=== PATIENT | male | born 1965 | race Caucasian/White ===

== ENCOUNTER 2017-06-22 14:36 | Inpatient (IN) | payer OTHER ==
[~2017-06-22] VITALS: Ht 185.4 cm; Wt 102.3 kg
[2017-06-22 14:40] VITALS: Ht 185.4 cm; Wt 102.3 kg
[2017-06-22 15:22] LABS: BASOPHIL % 0.3 % (0-2); PLATELET COUNT 181 x10^3mcL (130-400)
[2017-06-22 15:26] LABS: CALCIUM 8.7 mg/dL (8.5-10.1); CARBON DIOXIDE 25.7 mmol/L (21-32); CHLORIDE SERUM 109 mmol/L (98-107); CREATININE SERUM 1.1 mg/dL (0.7-1.3); GFR1 > 60 mL/min; GLUCOSE SERUM 105 mg/dL (74-106); SODIUM SERUM 143 mmol/L (136-145)
[2017-06-22 15:30] LABS: ALBUMIN 3.8 g/dL (3.4-5.0); ALKALINE PHOSPHATASE 52 U/L (46-116); ALT/SGPT 27 U/L (16-63); AST/SGOT 20 U/L (15-37); BILIRUBIN TOTAL 0.24 mg/dL (0.20-1.00); CHOLESTEROL 153 mg/dL (<200); HDL CHOLESTEROL 41 mg/dL (40-60); PHOSPHOROUS 3.8 mg/dL (2.5-4.9); TOTAL PROTEIN, SERUM 6.9 g/dL (6.4-8.2); URIC ACID 5.3 mg/dL (3.5-7.2)
[2017-06-22 16:55] LABS: MAGNESIUM 2.1 mg/dL (1.8-2.4)
[2017-06-22 17:08] LABS: T3 TOTAL 1.04 ng/mL
[2017-06-22 17:15] VITALS: BP 124/79
[2017-06-22 17:21] LABS: FREE T4 0.87 ng/dL (0.76-1.46); FREE THYROXINE INDEX 2.3 ug/dL (1.4-4.5); T4(THYROXINE) 6.9 ug/dL (4.7-13.3)
[2017-06-22 21:03] VITALS: BP 99/69
[2017-06-23 05:28] VITALS: BP 125/83
[2017-06-23 06:15] LABS: BASOPHIL % 0.6 % (0-2); PLATELET COUNT 159 x10^3mcL (130-400); RED CELL DISTRIBUTION WIDTH 12.9 % (11.5-14.5)
[2017-06-23 06:26] LABS: CALCIUM 8.8 mg/dL (8.5-10.1); CHLORIDE SERUM 109 mmol/L (98-107); CREATININE SERUM 1.1 mg/dL (0.7-1.3); GFR1 > 60 mL/min; GLUCOSE SERUM 103 mg/dL (74-106); MAGNESIUM 2.1 mg/dL (1.8-2.4); PHOSPHOROUS 3.3 mg/dL (2.5-4.9); POTASSIUM SERUM 4.1 mmol/L (3.5-5.1); SODIUM SERUM 143 mmol/L (136-145)
[2017-06-23 09:24] VITALS: BP 114/72
[2017-06-23 13:02] VITALS: BP 98/71
[2017-06-23 13:06] LABS: microscopic required? YES; urine erythrocyte TRACE (NEGATIVE)
[2017-06-23 13:32] LABS: AMPHETAMINE QUAL UR NONE DETECTED (NEG <=1000)
[2017-06-23 17:03] LABS: CALCIUM 8.2 mg/dL (8.5-10.1); CARBON DIOXIDE 27.8 mmol/L (21-32); CHLORIDE SERUM 107 mmol/L (98-107); CREATININE SERUM 1.1 mg/dL (0.7-1.3); GFR1 > 60 mL/min; GLUCOSE SERUM 94 mg/dL (74-106); POTASSIUM SERUM 3.9 mmol/L (3.5-5.1); SODIUM SERUM 140 mmol/L (136-145)
[2017-06-23 21:26] VITALS: BP 117/77
[2017-06-24 05:14] VITALS: BP 105/64
[2017-06-24 06:29] LABS: CALCIUM 8.8 mg/dL (8.5-10.1); CARBON DIOXIDE 27.4 mmol/L (21-32); CHLORIDE SERUM 109 mmol/L (98-107); CREATININE SERUM 1.1 mg/dL (0.7-1.3); GFR1 > 60 mL/min; GLUCOSE SERUM 94 mg/dL (74-106); POTASSIUM SERUM 4.4 mmol/L (3.5-5.1); SODIUM SERUM 143 mmol/L (136-145)
[2017-06-24 06:37] LABS: BASOPHIL % 0.8 % (0-2); PLATELET COUNT 158 x10^3mcL (130-400)
[2017-06-24 09:05] VITALS: BP 105/64
[2017-06-24 13:36] VITALS: BP 106/72
[2017-06-24 14:53] VITALS: BP 106/72
[2017-06-24] MEDS ORDERED: ECO81 PO (15:02)
[2017-06-24] MEDS ORDERED: SOTALOL HCL AF PO (15:02)
== END 2017-06-24 15:59 | disposition home or self-care (01) | DRG 310 ==
LOC: ED 14:36 → DU 16:14
PROVIDERS: Emergency Medicine; Family Medicine; ADMIT Family Medicine
DX: I48.0 Paroxysmal atrial fibrillation (principal); E78.5 Hyperlipidemia, unspecified; E02 Subclinical iodine-deficiency hypothyroidism; Z98.1 Arthrodesis status; Z82.49 Family history of ischemic heart disease and other diseases of the circulatory system
CPT/HCPCS: 83880; 84439; 90658; J3490; J7030